=== PATIENT | female | born 1955 | race Caucasian/White ===

== ENCOUNTER → 2016-09-18 | Day surgery (SDC) | payer BC ==
[~2016-09-18] MED LIST: ADVAIR 100-501 EAC1 INH; ALBUTEROL17 GM INH; AMLOD-VALSA-HC1 EAC2 PO; AMOXICILLIN PO; ANTIDEPRESSANT PO; ASPIRIN EC81 M1 PO; ASPIRIN PO; CRESTOR40 MG PO; DESYREL50 MG PO; EFFEXOR75 M3 PO; EXFORGE HCT 5-1 EAC1 PO; FERROUS GLUCON324 MG PO; FLAGYL PO; FLEXERIL10 MG PO; FLONASE ALLERG9.9 ML INH; GUAIFENESIN600 M1 PO; IBUPROFEN PO; IBUPROFEN800 MG PO; LEVAQUIN750 MG PO; LEVO-T112 MCG PO; LEXAPRO PO; LIPITOR PO; LISINOPRIL PO; LOPRESSOR PO; METOPROLOL TAR25 MG PO; PREDNISONE10 MG PO; PREDNISONE10 MG/DOSE PO; PROAIR HFA8.5 GM INH; PROTONIX PO; ROSUVASTATIN CA40 MG PO; SINGULAIR PO; SYNTHROID PO; TOPROL XL PO; TRAZODONE PO; VENLAFAXINE HCL75 M2 PO; VIBRAMYCIN50 MG PO; VICODIN 5/500 T1 TAB PO; ZETIA PO; ZYRTEC10 M1 PO
--- NOTE | ~2016-09-18 | OR ---
Unit #: [id number] #: [id number] Patient: BLESSING MONTOYA [id number] [address] [place], [place] [address] [id number] O MR#: [id number] NAME: BLESSING MONTOYA. ROOM: Date of Procedure: 09/18/2016 Admission Date: 09/18/2016 Surgeon: Chad Correa M.D. : 1955 Attending Physician: Chad Correa M.D. Primary Care Physician: Ritesh Bush M.D. OPERATIVE REPORT PRIMARY CARE PHYSICIAN Ritesh Bush M.D. PREOPERATIVE DIAGNOSES The patient had severe ischemic colitis diagnosed 3 months ago. She has come for elective upper endoscopy to document resolution of the ischemia. PROCEDURES PERFORMED Colonoscopy up to cecum and terminal ileum. POSTOPERATIVE DIAGNOSES 1. The patient had complete resolution of ischemic colitis noted earlier. The area in the descending colon, where the previous ischemia was seen showed mild erythema, but mucosa was completely healed. 2. The patient also had mild diverticulosis. 3. Rest of the examination up to cecum was normal. The quality of the prep was excellent. RECOMMENDATIONS The patient will be followed up in the office in 4 to 6 months' time. SEDATION USED MAC. DESCRIPTION OF PROCEDURE Following detailed explanation of potential risks and complications of a colonoscopy, namely perforation, bleeding, and complication related to sedation, the patient was brought to GI lab and laid in the left lateral decubitus position. A digital rectal examination was performed which was normal. Lubricated tip of the Olympus video colonoscope was inserted through the anus and advanced under direct vision. The scope was advanced past rectosigmoid into descending colon. Scant small diverticula were noted in this area. The scope tip was then navigated all the way up to cecum with visualization of the ileocecal valve and the appendiceal orifice. Preparation was excellent with good visualization and photodocumentation was obtained. Last few inches of the terminal ileum were also visualized after intubation of the ileocecal valve and appeared normal. Successive segments of the colonic mucosa were examined upon withdrawal and appeared unremarkable except for mild erythema in the proximal descending colon. Previously seen changes of severe colonic ischemia had completely resolved. No polyps or mass lesions were seen. No angiodysplasias were seen. The patient did not have any hemorrhoids at Unit #: [id number] #: [id number] Patient: BLESSING MONTOYA the anal verge. The scope was then withdrawn and the patient returned to recovery area. She tolerated the procedure without any postprocedure complications. Dictated by.Lelo Mondragon TD: 09/19/2016 01:34 JOB #: [id number] OPERATIVE REPORT Page 1 of 1 X Chad Correa MD PROCEDURE OPERATIVE NOTE
== END | disposition home or self-care (01) ==
LOC: COPS 09:05
DX: K63.89 Other specified diseases of intestine (principal); K57.30 Diverticulosis of large intestine without perforation or abscess without bleeding; K21.9 Gastro-esophageal reflux disease without esophagitis; E03.9 Hypothyroidism, unspecified; E66.01 Morbid (severe) obesity due to excess calories; Z91.041 Radiographic dye allergy status